=== PATIENT | male | born 1995 | race Two or more races ===

== ENCOUNTER 2023-05-15 00:57 | Emergency (ER) | payer OTHER ==
[~2023-05-15] VITALS: Ht 188 cm; Wt 95.5 kg
[2023-05-15] MEDS ORDERED: LIDOCAINE VISCOUS 2% 15ML UD MT ONE (01:15)
[2023-05-15] MEDS ORDERED: MINERAL OIL 30 ML PO ONE (02:45)
[2023-05-15] MEDS ORDERED: AMOX875T4 PO (03:58)
[2023-05-15] MEDS ORDERED: IBUP-1456 PO (03:58)
[2023-05-15 04:14] VITALS: BP 147/96; PULSE 101; RESP 20
[2023-05-15 04:16] VITALS: O2SAT 99
== END 2023-05-15 07:05 | disposition home or self-care (01) ==
LOC: ER 00:57
DX: T16.2XXA Foreign body in left ear, initial encounter (principal); W44.F4XA Insect entering into or through a natural orifice, initial encounter; Y93.89 Activity, other specified; Y92.89 Other specified places as the place of occurrence of the external cause; Y99.8 Other external cause status
CPT/HCPCS: 69200